=== PATIENT | male | born 1955 | race Caucasian/White ===

== ENCOUNTER 2021-06-19 17:30 | Inpatient (IN) | payer OTHER ==
[~2021-06-19] VITALS: Ht 176.5 cm; Wt 121.3 kg
[2021-06-19] MEDS ORDERED: SODIUM CHLORIDE 0.9% 500 ML IV ONE (18:15)
[2021-06-19] MEDS ORDERED: IOHEXOL 300 MG/ML 100ML BOTTLE IJ ONE (19:31)
[2021-06-19 19:40] LABS: Basophils # (auto) 0.1 10 ^3/uL (0-0.2); Basophils % (auto) 0.8 % (0.0-2.0); Eosinophils # (auto) 0 10 ^3/uL (0-0.8); Hematocrit 38.4 % (41.0-53.0); Hemoglobin 12.9 g/dL (13.5-17.5); Lymphocytes # (auto) 0.5 10 ^3/uL (0.4-5.4); Lymphocytes % (auto) 2.9 % (10.0-50.0); Mean Corpuscular Hemoglobin 31.4 pg (28.0-32.0); Mean Corpuscular Hgb Conc. 33.7 g/dL (32.0-36.0); Mean Corpuscular Volume 93.2 fL (80.0-100.0); Monocytes % (auto) 5.4 % (0.0-12.0); Neutrophils # (auto) 16.3 10 ^3/uL (1.6-8.6); Neutrophils % (auto) 90.9 % (37.0-80.0); Red Blood Cells 4.12 10^6/uL (4.5-5.90); Red Cell Distribution Width 14.3 % (11.8-14.3); White Blood Cell 17.9 10^3/uL (4.4-10.8)
[2021-06-19 19:46] LABS: Albumin 3.5 g/dL (3.4-5.0); Calcium 8.8 mg/dL (8.5-10.1); Potassium 4.5 mmol/L (3.5-5.1)
[2021-06-19 19:51] LABS: BUN/Creatinine Ratio 18.2; Total Protein 7.6 g/dL (6.4-8.2)
[2021-06-19 20:02] LABS: Lactic Acid w/Reflex 5.2 mmol/L (0.4-2.0)
[2021-06-19 20:05] LABS: INR 1.19 (0.9-1.15)
[2021-06-19] MEDS ORDERED: HYDROmorphone HCL 2 MG/ML VL IV ONE ×2 (21:00→22:15)
[2021-06-19] MEDS ORDERED: ONDANSETRON HCL 4 MG/2 ML VIAL IV ONE (21:00)
[2021-06-19] MEDS ORDERED: PIPERACILLIN-TAZOB 3.375GM 100 ML IV ONE (22:15)
[2021-06-19] MEDS ORDERED: ONDANSETRON HCL 4 MG/2 ML VIAL IV PRN (23:00)
[2021-06-19] MEDS ORDERED: FAMOTIDINE (10MG/ML) 2ML VL IV ONE (23:00)
[2021-06-19] MEDS ORDERED: MORPHINE SULFATE INJECTION 2 MG/ML SYRG IV PRN (23:00)
[2021-06-19] MEDS ORDERED: NITROGLYCERIN 0.4 MG SL TAB SL PRN (23:00)
[2021-06-19] MEDS ORDERED: DEXTROSE (50%) 50ML SYRG IV PRN (23:00)
[2021-06-19] MEDS ORDERED: metroNIDAZOLE 500MG/100ML 100 ML IV ONE (23:00)
[2021-06-19 23:58] LABS: Urine Bacteria MANY /hpf (None Seen); Urine Blood Negative /uL (Negative); Urine Hyaline Cast FEW /lpf (0 - 2); Urine Mucus FEW (None Seen); Urine Specific Gravity 1.045 (1.001-1.035); Urine WBC 26 /hpf (0 - 3)
[2021-06-20 01:20] VITALS: BP 115/62
[2021-06-20] MEDS: SODIUM CHLORIDE 0.9% 1,000 ML IV SCH ×2 (02:29→11:26)
[2021-06-20] MEDS ORDERED: FURO40TA4 PO (03:56)
[2021-06-20] MEDS ORDERED: TRAZ50TA2 PO (03:56)
[2021-06-20] MEDS ORDERED: LEVO100T8 (03:56)
[2021-06-20] MEDS ORDERED: LISI20TA28 PO (03:56)
[2021-06-20] MEDS ORDERED: ALLO100T PO (03:56)
[2021-06-20] MEDS ORDERED: ATOR20TA50 (03:56)
[2021-06-20 04:05] LABS: Basophils # (auto) 0 10 ^3/uL (0-0.2); Basophils % (auto) 0.1 % (0.0-2.0); Eosinophils # (auto) 0 10 ^3/uL (0-0.8); Hematocrit 32.9 % (41.0-53.0); Hemoglobin 11.6 g/dL (13.5-17.5); Lymphocytes # (auto) 1.2 10 ^3/uL (0.4-5.4); Lymphocytes % (auto) 8.4 % (10.0-50.0); Mean Corpuscular Hemoglobin 32.2 pg (28.0-32.0); Mean Corpuscular Hgb Conc. 35.2 g/dL (32.0-36.0); Mean Corpuscular Volume 91.5 fL (80.0-100.0); Monocytes % (auto) 6.7 % (0.0-12.0); Neutrophils # (auto) 12.4 10 ^3/uL (1.6-8.6); Neutrophils % (auto) 84.8 % (37.0-80.0); Red Cell Distribution Width 14.3 % (11.8-14.3); White Blood Cell 14.6 10^3/uL (4.4-10.8)
[2021-06-20 04:23] LABS: Albumin 3.1 g/dL (3.4-5.0); BUN/Creatinine Ratio 20.5; Calcium 8.3 mg/dL (8.5-10.1); Potassium 4.2 mmol/L (3.5-5.1)
[2021-06-20 04:27] LABS: Bilirubin, Total 0.8 mg/dL (0.2-1.0); Total Protein 6.7 g/dL (6.4-8.2)
[2021-06-20 05:00] VITALS: BP 112/69
[2021-06-20] MEDS: InsuLIN REG 1unit/0.01ml Soln (100units/ml) SC SCH ×4 (06:00→18:16)
[2021-06-20] MEDS ORDERED: metroNIDAZOLE 500MG/100ML 100 ML IV SCH (06:00)
[2021-06-20] MEDS: ACCU-CHEK COMFORT CURVE STRIP VI SCH ×4 (06:00→18:16)
[2021-06-20 09:06] VITALS: BP 123/68
[2021-06-20] MEDS: MORPHINE SULFATE 4 MG/ML SYR/VIAL IV PRN ×2 (09:34→21:11)
[2021-06-20] MEDS: FAMOTIDINE (10MG/ML) 2ML VL IV SCH ×2 (09:38→21:10)
[2021-06-20] MEDS: cefTRIAXone 1GM/50ML D5W 50 ML IV SCH (09:38)
[2021-06-20] MEDS: metroNIDAZOLE 500MG/100ML 100 ML IV SCH ×2 (10:45→18:20)
[2021-06-20 12:00] VITALS: BP 122/74
[2021-06-20 17:00] VITALS: BP 111/67
[2021-06-20 22:07] VITALS: BP 127/70
[2021-06-21] MEDS: metroNIDAZOLE 500MG/100ML 100 ML IV SCH ×3 (02:27→17:44)
[2021-06-21 05:33] VITALS: BP 125/69
[2021-06-21] MEDS: InsuLIN REG 1unit/0.01ml Soln (100units/ml) SC SCH ×4 (06:00→17:45)
[2021-06-21] MEDS: ACCU-CHEK COMFORT CURVE STRIP VI SCH ×4 (06:29→17:45)
[2021-06-21 06:32] LABS: Basophils # (auto) 0 10 ^3/uL (0-0.2); Basophils % (auto) 0.4 % (0.0-2.0); Eosinophils # (auto) 0 10 ^3/uL (0-0.8); Eosinophils % (auto) 0.2 % (0.0-7.0); Hematocrit 28.5 % (41.0-53.0); Hemoglobin 10.1 g/dL (13.5-17.5); Lymphocytes # (auto) 1.3 10 ^3/uL (0.4-5.4); Lymphocytes % (auto) 12.8 % (10.0-50.0); Mean Corpuscular Hgb Conc. 35.5 g/dL (32.0-36.0); Monocytes # (auto) 0.7 10 ^3/uL (0-1.3); Monocytes % (auto) 6.8 % (0.0-12.0); Neutrophils # (auto) 8.4 10 ^3/uL (1.6-8.6); Neutrophils % (auto) 79.8 % (37.0-80.0); Red Blood Cells 3.07 10^6/uL (4.5-5.90); Red Cell Distribution Width 14.2 % (11.8-14.3); White Blood Cell 10.5 10^3/uL (4.4-10.8)
[2021-06-21 06:45] LABS: Albumin 2.8 g/dL (3.4-5.0); Calcium 8.3 mg/dL (8.5-10.1); Potassium 3.8 mmol/L (3.5-5.1)
[2021-06-21 06:47] LABS: BUN/Creatinine Ratio 18.5
[2021-06-21 06:50] LABS: Bilirubin, Total 0.6 mg/dL (0.2-1.0); Total Protein 6.3 g/dL (6.4-8.2)
[2021-06-21] MEDS: cefTRIAXone 1GM/50ML D5W 50 ML IV SCH (08:36)
[2021-06-21 08:48] VITALS: BP 129/65
[2021-06-21] MEDS: FAMOTIDINE (10MG/ML) 2ML VL IV SCH ×2 (10:00→22:05)
[2021-06-21] MEDS ORDERED: IOHEXOL 350 MG/ML 100ML IJ ONE (12:00)
[2021-06-21] MEDS: SODIUM CHLORIDE 0.9% 1,000 ML IV SCH ×2 (12:30)
[2021-06-21 12:45] VITALS: BP 134/79
[2021-06-21 16:33] VITALS: BP 122/70
[2021-06-21] MEDS: MORPHINE SULFATE 4 MG/ML SYR/VIAL IV PRN (18:41)
[2021-06-21 21:52] VITALS: BP 133/70
[2021-06-22] MEDS: SODIUM CHLORIDE 0.9% 1,000 ML IV SCH (00:28)
[2021-06-22] MEDS: metroNIDAZOLE 500MG/100ML 100 ML IV SCH (02:24)
[2021-06-22 05:00] VITALS: BP 121/75
[2021-06-22] MEDS: InsuLIN REG 1unit/0.01ml Soln (100units/ml) SC SCH ×2 (05:41)
[2021-06-22] MEDS: ACCU-CHEK COMFORT CURVE STRIP VI SCH ×2 (05:42)
[2021-06-22 07:16] LABS: Basophils # (auto) 0 10 ^3/uL (0-0.2); Basophils % (auto) 0.5 % (0.0-2.0); Eosinophils # (auto) 0.1 10 ^3/uL (0-0.8); Eosinophils % (auto) 1.4 % (0.0-7.0); Hemoglobin 10.1 g/dL (13.5-17.5); Lymphocytes # (auto) 1.6 10 ^3/uL (0.4-5.4); Lymphocytes % (auto) 20.9 % (10.0-50.0); Mean Corpuscular Hemoglobin 32.4 pg (28.0-32.0); Mean Corpuscular Hgb Conc. 34.9 g/dL (32.0-36.0); Mean Corpuscular Volume 92.7 fL (80.0-100.0); Monocytes # (auto) 0.5 10 ^3/uL (0-1.3); Monocytes % (auto) 6.3 % (0.0-12.0); Neutrophils # (auto) 5.6 10 ^3/uL (1.6-8.6); Neutrophils % (auto) 70.9 % (37.0-80.0); Nucleated Red Blood Cells % 0.1 %; Red Blood Cells 3.12 10^6/uL (4.5-5.90); Red Cell Distribution Width 14.1 % (11.8-14.3); White Blood Cell 7.9 10^3/uL (4.4-10.8)
[2021-06-22 07:24] LABS: Albumin 2.9 g/dL (3.4-5.0); Calcium 8.4 mg/dL (8.5-10.1); Potassium 3.7 mmol/L (3.5-5.1)
[2021-06-22 07:27] LABS: Bilirubin, Total 0.6 mg/dL (0.2-1.0); Total Protein 6.8 g/dL (6.4-8.2)
[2021-06-22 08:54] VITALS: BP 130/73
== END 2021-06-22 14:00 | disposition left against medical advice (07) | DRG 872 ==
LOC: ER 17:30 → EDBD 17:30 → TELE 22:58 → TELE-WESTW 23:50
PROVIDERS: ADMIT Nurse Practitioner; ATTEND Internal Medicine
DX: A41.9 Sepsis, unspecified organism (principal); K57.20 Diverticulitis of large intestine with perforation and abscess without bleeding; E11.9 Type 2 diabetes mellitus without complications; I10 Essential (primary) hypertension; E66.01 Morbid (severe) obesity due to excess calories; Z20.822 Contact with and (suspected) exposure to COVID-19; E78.5 Hyperlipidemia, unspecified; Z53.29 Procedure and treatment not carried out because of patient's decision for other reasons; Z88.8 Allergy status to other drugs, medicaments and biological substances; Z83.3 Family history of diabetes mellitus; Z68.39 Body mass index [BMI] 39.0-39.9, adult
CPT/HCPCS: 36415; 71045; 74018; 74177; 80053; 81001; 82962; 83036; 83605; 83690; 83880; 84443; 84484; 85025; 85610; 86850; 86870; 86880; 86900; 86901; 86905; 86906; 86970; 86971; 86978; 87040; 93005; 96361; 96374; 96375; G0378; J0696; J1815; J2405; J2543; J3490